=== PATIENT | male | born 1965 | race Caucasian/White ===

== ENCOUNTER 2017-07-13 13:15 | Emergency (ER) | payer OTHER | END 2017-07-13 17:24 | disposition home or self-care (01) | LOC: D.ER 13:15 | DX: S61.216A Laceration without foreign body of right little finger without damage to nail, initial encounter (principal); V86.56XA Driver of dirt bike or motor/cross bike injured in nontraffic accident, initial encounter; Y93.89 Activity, other specified; Y92.89 Other specified places as the place of occurrence of the external cause ==

== ENCOUNTER 2018-02-13 07:10 | Day surgery (SDC) | payer OTHER ==
[2018-02-12 13:38] LABS: BASOPHILS 1.1 % (0-2); HEMATOCRIT 44.3 % (42.0-54.0); HEMOGLOBIN 14.8 g/dL (13.5-17.5); IMMATURE GRANULOCYTES 0.1 % (0-5); LYMPHOCYTES 32.6 % (15-50); MCHC 33.4 g/dL (31.0-37.0); MCV 92.9 fL (80.0-100.0); MEAN PLATELET VOLUME 10.3 fL (7.4-10.4); MONOCYTES 6.8 % (2-11); NEUTROPHILS 47.4 % (40-80); PLATELET COUNT 187 10x3/uL (130-400); RBC 4.77 10x6/uL (4.20-6.10); RDW 13.7 % (11.5-14.5); WBC 7.6 10x3/uL (4.8-10.8)
[2018-02-12 13:51] LABS: CALC OSMOLALITY 283 mosm/kg (275-300); CALCIUM 9.4 mg/dL (8.5-10.1); CARBON DIOXIDE 29.1 mmol/L (21.0-32.0); CHLORIDE - SERUM 105 mmol/L (98-107); GLUCOSE 104 mg/dL (74-106); POTASSIUM - SERUM 3.9 mmol/L (3.5-5.1); SODIUM 142 mmol/L (136-145); UREA NITROGEN 14 mg/dL (7-18); eGFR NON AFRICAN AMERICAN 84 mL/min (90-120)
[~2018-02-13] VITALS: Ht 170.2 cm; Wt 98.4 kg
--- NOTE | ~2018-02-13 | OP ---
PATIENT NAME: JOLIE MINOR MEDICAL RECORD: [id number] :67 LOCATION:[facility] ADMISSION DATE: SURGEON: BRICE BOYLE MD DATE OF OPERATION: 02/13/2018 PREOPERATIVE DIAGNOSIS: Familial multiple lipomata. POSTOPERATIVE DIAGNOSIS: Familial multiple lipomata. PROCEDURE: Excision of lipomas from bilateral upper extremities, bilateral thighs, anterior thighs, and the trunk and abdomen. SURGEON: Brice Boyle MD WEBSITE DEVELOPER: Akua Monroy APRN REPORT OF OPERATION: The patient's abdomen, bilateral anterior thighs, and bilateral upper extremities were prepped and draped in sterile fashion. I approached the right lateral abdomen first. A total of 5 transverse incisions were made overlying the palpable masses on the lateral flank. Using blunt dissection, I was able to get around these masses and remove multiple large cores of lipomatous tissue. The cores easily came out of the tissue and did not appear to be consistent with sarcomas. Even with just the 5 incisions, I pulled out about 10 lipomas from that area of the lateral abdomen. The range in size was from 1 cm to 3 cm. At the conclusion of this, we irrigated out the wound and assured there was no sign of any active bleeding. We then approached the patient's right anterior thigh. Again, 5 longitudinal incisions were made overlying the palpable masses. We were able to bluntly get around these masses and remove them. A total of approximately 8-10 lipomas were removed from the subcutaneous space. The lipomas again ranged in size from about 1 cm to 3 cm in greatest diameter. We irrigated out the wounds and assured there was no sign of any bleeding and any that was found was treated with electrocautery. I then went to the left anterior thigh. Two incisions were made longitudinally over the thigh and through these incisions, a total of 5 lipomas were removed from the subcutaneous tissues. These ranged in size from 2-3 cm in size. We irrigated out these wounds with normal saline and any bleeding was treated with electrocautery. We then approached the left lateral flank. Three transverse incisions were made on the left lateral flank and through this a total of 12 lipomas were removed. Most of these were in the range of 2-3 cm, but there was one 4 cm lipoma found. Once these lipomas were all removed, then the wounds were irrigated out with normal saline and any bleeding was treated with electrocautery. On the left lateral forearm, there were 2 small lipomas 1 cm in size, which were each removed through longitudinal incisions. Again, these wounds were irrigated out and any bleeding was treated with electrocautery. On the posterior aspect of the left upper arm, there was a 2 cm lipoma present. A longitudinal incision was made overlying this and this lipoma was completely excised. We irrigated the wound with normal saline and then treated the wound with cautery to stop any bleeding. We then approached the right posterior upper arm where there was again a 3 cm lipoma present. A longitudinal incision was made overlying this and the lipoma was completely excised. We treated the wound with electrocautery to stop any bleeding and then washed out with saline. All of the wounds were closed in multiple layers using interrupted 3-0 Vicryls in the subcutaneous space followed by running subcutaneous 5-0 Monocryl. The wounds were then all dressed with Dermabond. OPERATIVE REPORT [id number] JOLIE MINOR COMPLICATIONS: None. CONDITION: Stable. ANESTHESIA: General endotracheal. BLOOD LOSS: 50 mL. TRANSINT:[id number] Voice Confirmation ID: [id number] DOCUMENT ID: [id number] BRICE BOYLE MD at 1409 CC: COSTA PEREZ [id number] DICTATION DATE: 02/13/18 1105 INSPECTOR POISING: 02/13/18 1130 [facility] 02/13/[address] [id number]
[2018-02-13 07:46] VITALS: BP 118/72; Ht 170.2 cm; Wt 98.4 kg
[2018-02-13] MEDS ORDERED: NORCO 10-325 TA1 TAB PO (10:56)
== END 2018-02-13 13:30 | disposition home or self-care (01) ==
LOC: D.OPS 07:10 → D.PAN 09:00 → D.OPS 09:00 → D.PAN 10:05 → D.OPS 10:05
PROVIDERS: Surgery
DX: D17.22 Benign lipomatous neoplasm of skin and subcutaneous tissue of left arm (principal); D17.21 Benign lipomatous neoplasm of skin and subcutaneous tissue of right arm; D17.24 Benign lipomatous neoplasm of skin and subcutaneous tissue of left leg; D17.23 Benign lipomatous neoplasm of skin and subcutaneous tissue of right leg; D17.1 Benign lipomatous neoplasm of skin and subcutaneous tissue of trunk; Z01.812 Encounter for preprocedural laboratory examination